=== PATIENT | female | born 1970 | race Caucasian/White ===

== ENCOUNTER 2016-12-23 22:54 | Emergency (ER) | payer OTHER ==
[~2016-12-23] VITALS: Ht 162.6 cm; Wt 130.5 kg
[2016-12-23 23:04] VITALS: TEMP 36.5; Ht 162.6 cm; Wt 130.5 kg
--- NOTE | 2016-12-23 23:31 | EMERGENCY ROOM VISIT NOTE ---
History First contact with patient: 23:08 Chief Complaint: SHOULDER PAIN Stated Complaint: RT SHOULDER INJURY-WC History of Present Illness The patient is a 46 year old female who presents to the Emergency Room with complaints of right shoulder pain. The patient reports that she was at work and was lifting a patient, when the patient resisted and she felt a tearing, burning sensation in her right shoulder. She also states that she heard a tear in her shoulder. She states that afterward, her shoulder "would not respond" for a few seconds. She now reports pain throughout the shoulder which radiates up into the neck and down into the back. She rates her discomfort an 8/10. She is not taking any medication for her symptoms. She denies any previous injuries to the shoulder. She denies any numbness or weakness. Review of Systems A complete 6 point review of systems was reviewed with the patient with pertinent positives and negatives as per history of present illness. All else were negative. Social History Smoking Status: Current Every Day Smoker Physical Exam Vital Signs Date Time Temp Pulse Resp B/P (MAP) Pulse Ox O2 Delivery O2 Flow Rate FiO2 12/23/16 23:04 36.5 90 18 153/100 98 Room Air Physical Exam VITALS: Vitals are noted on the nurse's note and reviewed by myself. Vital signs stable. GENERAL: This is a 46-year-old female, in no acute distress, nondiaphoretic, well-developed well-nourished. SKIN: Capillary reflex less than 2 seconds. HEART: Regular rate and rhythm without murmurs gallops or rubs. LUNGS: Clear to auscultation bilaterally without wheezes, rales or rhonchi. MUSCULOSKELETAL: There is diffuse tenderness to palpation over the right shoulder. Full range of motion of the shoulder. Strength 5/5 in the right upper extremity. Radial pulses 2+. NEURO: Patient was alert and oriented to person place and time. Normal sensation to light and sharp touch. Medical Decision & Procedures ER Provider Diagnostic Interpretation: RIGHT SHOULDER 3 VIEWS CLINICAL HISTORY: Right shoulder injury. FINDINGS: 3 views of the right shoulder are obtained. No prior studies are available for comparison at the time of dictation. The skeletal structures are well mineralized. No fracture or dislocation is seen. The glenohumeral and acromioclavicular joints are well-maintained. The overlying soft tissues are within normal limits. The visualized right lung parenchyma appears clear. IMPRESSION: There is no radiographic evidence of right shoulder fracture or dislocation. Medical Decision Differential diagnosis includes fracture, contusion, sprain, dislocation, among others. Patient was evaluated as above. She has a tenderness over the right shoulder. X-ray was interpreted by myself and radiology and shows no fracture or dislocation. The patient was placed in an arm sling. She was instructed to follow-up with orthopedics. Conservative measures were discussed. Patient was found to be hypertensive and counseled to follow up with her primary care provider for recheck of her blood pressure. The patient verbalized understanding of my assessment and treatment plan and was discharged home in good condition. Impression Primary Impression: Right shoulder injury Departure Information Dispostion Home / Self-Care Condition GOOD Referrals No Doctor, Assigned (PCP) Patient Instructions [facility] Additional Instructions You have been treated in the Emergency Department for Shoulder Pain. For pain control, you can use the following [id number] medicines (if >12 yo): - Regular strength (325mg/tab) Tylenol (acetaminophen) 2 tabs every 4-6 hours as needed. Do not exceed 12 tablets in a 24 hour period. Avoid taking more than 4 grams (4000 mg) of Tylenol per day. This includes any other sources of acetaminophen you may take on a regular basis. - Regular strength (200 mg/tab) Advil (ibuprofen) 1-2 tabs every 4-6 hours as needed. Do not exceed a dose of 3200 mg per day. If this is a recent injury (<24 hrs), ice can be applied to the area of pain for the first 3 days to help decrease pain and inflammation. Wear the arm sling for the next few days as needed for pain. Follow-up with orthopedics as directed by Workmen's Compensation. Your blood pressure was elevated today. Make sure this is rechecked by your primary care provider this week. Return to the Emergency Department if your current symptoms worsen despite treatment course outlined above, or if you develop any of the following symptoms : intractable pain despite aforementioned treatment course or new onset of numbness or tingling of the arm. Problem Qualifiers Primary Impression: Right shoulder injury Encounter type: initial encounter Qualified Codes: S49.91XA - Unspecified injury of right shoulder and upper arm, initial encounter
[2016-12-23] MEDS ORDERED: DULO60CA44 PO (23:49)
[2016-12-24 00:01] VITALS: BP 149/99; PULSE 81; O2SAT 96
== END 2016-12-24 00:02 | disposition home or self-care (01) ==
LOC: C.EDB 22:56
DX: S49.91XA Unspecified injury of right shoulder and upper arm, initial encounter (principal); X50.0XXA Overexertion from strenuous movement or load, initial encounter; Y93.F2 Activity, caregiving, lifting; Y99.0 Civilian activity done for income or pay; F17.200 Nicotine dependence, unspecified, uncomplicated

== ENCOUNTER → 2017-01-01 | Outpatient (CLI) | payer OTHER ==
[~2017-01-01] MED LIST: DULO60CA44 PO
--- NOTE | 2017-01-01 09:22 | DIAGNOSTIC IMAGING REPORT ---
RIGHT SHOULDER MRI HISTORY: R SHOULDER PAIN,DECREASED RANGE OF MOTION Right TECHNIQUE: Multiplanar multisequence MRI of the right shoulder was performed without contrast. COMPARISON STUDY: Right shoulder 12/23/2016. FINDINGS: AC joint: Small amount of fluid within the AC joint. The AC joint is well aligned. Rotator cuff: Increased signal within the subscapularis tendon consistent with a tendinopathy. There is a 10 x 7 mm high-grade partial tear at the undersurface of the distal supraspinatus tendon. There is also a 10 x 1 mm linear full-thickness tear within the distal infraspinatus tendon. The teres minor tendon is intact. Mild fatty atrophy of the supraspinatus muscle. Trace fluid within the subacromial/subdeltoid bursa. Labrum: Abnormal signal within the superior labrum consistent with a SLAP tear. Biceps tendon: Not well-visualized due to the motion artifact. There is abnormal signal and thickening within the proximal tendon consistent with a tendinopathy. Bones: No fracture or dislocation. Cartilage: Intact Miscellaneous: Trace joint effusion. IMPRESSION: 1. SLAP tear. 2. Small linear full-thickness tear within the distal infraspinatus tendon and a high-grade partial tear at the undersurface of the distal supraspinatus tendon. There is also subscapularis tendinopathy. 3. Long head of the biceps tendinopathy. 4. Trace joint effusion Electronically signed by: Pancho Harris M.D. 01/01/2017 9:21 AM Dictated Date/Time: 01/01/2017 9:14 AM
== END | disposition home or self-care (01) ==
LOC: C.MRI 08:23
PROVIDERS: ATTEND Nurse Practitioner Family
DX: S43.431A Superior glenoid labrum lesion of right shoulder, initial encounter (principal); X58.XXXA Exposure to other specified factors, initial encounter

== ENCOUNTER → 2017-03-23 | Outpatient (CLI) | payer OTHER ==
--- NOTE | 2017-03-23 10:49 | DIAGNOSTIC IMAGING REPORT ---
RIGHT HIP UNILATERAL 2 VIEWS CLINICAL HISTORY: Right hip pain status post trauma COMPARISON: None. DISCUSSION: There are postsurgical changes of a total right hip arthroplasty. There are no acute fractures or dislocations. IMPRESSION: Postsurgical change. No acute fractures or dislocations identified Electronically signed by: Nicola Altamirano M.D. 03/23/2017 10:48 AM Dictated Date/Time: 03/23/2017 10:47 AM
== END | disposition home or self-care (01) ==
LOC: C.RAD1850 10:37
PROVIDERS: ATTEND Nurse Practitioner Family
DX: M25.551 Pain in right hip (principal)

== ENCOUNTER → 2017-06-19 | Outpatient (CLI) | payer OTHER ==
--- NOTE | 2017-06-19 13:29 | DIAGNOSTIC IMAGING REPORT ---
PELVIS/RIGHT HIP MRI HISTORY: PERSISTENT RIGHT HIP PAIN AFTER FALL AT WORK TECHNIQUE: Multiplanar multisequence MRI of the pelvis/right hip was performed without the use of intravenous contrast COMPARISON STUDY: Right hip 03/23/2017. FINDINGS: There is a right total arthroplasty. The surrounding metallic artifact results in suboptimal evaluation of the right hip/hemipelvis. No definite fracture or dislocation within the visualized pelvic bones or hips. Questionable marrow edema within the proximal femur and questionable soft tissue edema at the right hip is likely due to the metallic artifact. The visualized sacrum appears intact. IMPRESSION: Suboptimal evaluation of the right hip due to the metallic artifact from the right total hip arthroplasty. However, no definite fracture or dislocation within the pelvis or hips. Electronically signed by: Pancho Harris M.D. 06/19/2017 1:27 PM Dictated Date/Time: 06/19/2017 1:21 PM
--- NOTE | 2017-06-19 14:00 | DIAGNOSTIC IMAGING REPORT ---
LUMBAR SPINE W/O CONTRAST CLINICAL HISTORY: 46 years-old Female presenting with PERSISTENT PAIN AFTER FALL AT WORK,R HIP. TECHNIQUE: Multisequence, multiplanar MR imaging of the lumbar spine was performed without the use of intravenous contrast. IV contrast: None. COMPARISON: None. FINDINGS: Localizer images: None available. Normal lumbar lordosis. Approximately 20% height loss of the T11 vertebral body with normal bone marrow signal intensity. T1 hyperintense, T2 hyperintense fat-containing benign hemangioma noted in the L4 vertebral body. Similar smaller lesion likely present in the L5 vertebral body. Otherwise vertebral bodies maintain normal height, alignment, and bone marrow signal intensity. Intervertebral disc desiccation noted at L2-3 and L3-4 without significant disc height loss. Mild degenerative changes detailed below: L1 to: No significant neural foraminal or spinal canal stenosis. L2-3: No significant neural foraminal or spinal canal stenosis. L3-4: Minimal disc bulge. In combination with facet arthropathy and ligamentum flavum thickening, mild bilateral neural foraminal narrowing results. Fluid noted within the bilateral L3-4 facet joints with small synovial cysts along the posterior elements. Mild circumferential thecal sac effacement. L4-5: Minimal disc bulge. Facet arthropathy and ligamentum flavum thickening. Mild right neural foraminal narrowing. Minimal circumferential effacement of the thecal sac. L5-S1: No significant neural foraminal or spinal canal narrowing. Spinal cord ends in good position at the superior endplate of L1. Cauda equina normal in morphology. Nonspecific subcutaneous edema noted in the lumbar region. Normal appearance of the paraspinal musculature. Her spinal soft tissues otherwise normal. IMPRESSION: 1. Mild degenerative change primarily at L3-4 and L4-5 with mild bilateral neural foraminal narrowing at L3-4 and mild right neural foraminal narrowing at L4-5. 2. Mild anterior vertebral body height loss of T11 without bony edema to suggest acute compression deformity. Electronically signed by: Mateo Robles M.D. 06/19/2017 1:59 PM Dictated Date/Time: 06/19/2017 1:52 PM
== END | disposition home or self-care (01) ==
LOC: C.MRIBC 10:55
PROVIDERS: ATTEND Nurse Practitioner Family
DX: R52 Pain, unspecified (principal); W19.XXXA Unspecified fall, initial encounter